=== PATIENT | male | born 1985 | race Two or more races ===

== ENCOUNTER 2019-03-05 20:47 | Emergency (ER) | payer MEDICAID ==
[~2019-03-05 20:47] MED LIST: DIAZ5TAB PO
== END 2019-03-05 20:58 | disposition left against medical advice (07) ==
LOC: ER 20:47
DX: T16.9XXA Foreign body in ear, unspecified ear, initial encounter (principal); Z53.21 Procedure and treatment not carried out due to patient leaving prior to being seen by health care provider; W45.8XXA Other foreign body or object entering through skin, initial encounter; Y93.89 Activity, other specified; Y92.89 Other specified places as the place of occurrence of the external cause; Y99.8 Other external cause status

== ENCOUNTER 2019-04-17 11:01 | Emergency (ER) | payer MEDICAID ==
[~2019-04-17] VITALS: Ht 175.3 cm; Wt 230.0 kg
[2019-04-17 11:10] VITALS: BP 141/82
== END 2019-04-17 11:48 | disposition home or self-care (01) ==
LOC: ER 11:02
DX: T16.1XXA Foreign body in right ear, initial encounter (principal); J45.909 Unspecified asthma, uncomplicated; F32.9 Major depressive disorder, single episode, unspecified; Z79.899 Other long term (current) drug therapy; Z98.890 Other specified postprocedural states; Z56.0 Unemployment, unspecified; X58.XXXA Exposure to other specified factors, initial encounter; Y93.E8 Activity, other personal hygiene; Y92.89 Other specified places as the place of occurrence of the external cause; Y99.8 Other external cause status
CPT/HCPCS: 69200; 99284

== ENCOUNTER 2019-04-21 13:33 | Emergency (ER) | payer MEDICAID ==
[~2019-04-21] VITALS: Ht 175.3 cm; Wt 104.5 kg
[2019-04-21] MEDS ORDERED: TRAM50TA2 PO (13:57)
[2019-04-21] MEDS ORDERED: IBUP-1986 PO (13:57)
[2019-04-21] MEDS ORDERED: ketorolac trometh inj. 60 MG/2 ML VIAL IM ONE (14:20)
[2019-04-21 14:43] VITALS: BP 120/79
== END 2019-04-21 14:54 | disposition home or self-care (01) ==
LOC: ER 13:34
DX: M54.5 Low back pain (principal); J45.909 Unspecified asthma, uncomplicated; F32.9 Major depressive disorder, single episode, unspecified; Z56.0 Unemployment, unspecified; Z79.899 Other long term (current) drug therapy
CPT/HCPCS: 96372; 99284; J1885

== ENCOUNTER 2019-05-19 21:17 | Emergency (ER) | payer MEDICAID ==
[~2019-05-19] VITALS: Ht 175.3 cm; Wt 104.5 kg
[~2019-05-19 21:17] MED LIST changes: +IBUP-1986 PO; +TRAM50TA2 PO
[2019-05-19 21:25] VITALS: BP 138/98
== END 2019-05-19 22:10 | disposition home or self-care (01) ==
LOC: ER 21:18
DX: T16.1XXA Foreign body in right ear, initial encounter (principal); J45.909 Unspecified asthma, uncomplicated; F32.9 Major depressive disorder, single episode, unspecified; F10.99 Alcohol use, unspecified with unspecified alcohol-induced disorder; Z56.0 Unemployment, unspecified; Z98.890 Other specified postprocedural states; Z79.899 Other long term (current) drug therapy; W22.8XXA Striking against or struck by other objects, initial encounter; Y93.89 Activity, other specified; Y92.89 Other specified places as the place of occurrence of the external cause; Y99.8 Other external cause status; Y90.9 Presence of alcohol in blood, level not specified
CPT/HCPCS: 99284

== ENCOUNTER 2019-07-23 15:14 | Emergency (ER) | payer MEDICAID, OTHER ==
[~2019-07-23] VITALS: Ht 175.3 cm; Wt 110.0 kg
[~2019-07-23 15:14] MED LIST changes: -TRAM50TA2 PO
[2019-07-23 15:35] VITALS: BP 129/61
[2019-07-23] MEDS ORDERED: colchicine 0.6mg tablet PO ONE (16:15)
[2019-07-23] MEDS ORDERED: NAPR-56 PO (16:16)
--- NOTE | 2019-07-23 16:40 | NUR ---
RECEVIED 0.6 MG OF COLCHICINE ,BUT DOSE ORDER IS 1.2 MG CALLED PHARMACY THEY SAID THEY WILL BRING IT BACK TO FAST TRACK.
== END 2019-07-23 16:51 | disposition home or self-care (01) ==
LOC: ER 15:14
DX: M10.9 Gout, unspecified (principal); M79.674 Pain in right toe(s); J45.909 Unspecified asthma, uncomplicated; G89.29 Other chronic pain; F32.9 Major depressive disorder, single episode, unspecified; F12.90 Cannabis use, unspecified, uncomplicated; F10.99 Alcohol use, unspecified with unspecified alcohol-induced disorder; Z98.890 Other specified postprocedural states; Z56.0 Unemployment, unspecified; Z79.899 Other long term (current) drug therapy; Y90.9 Presence of alcohol in blood, level not specified
CPT/HCPCS: 99282

== ENCOUNTER 2019-08-04 12:10 | Emergency (ER) | payer MEDICAID, OTHER ==
[~2019-08-04] VITALS: Ht 172.7 cm; Wt 103.0 kg
[2019-08-04 12:42] LABS: CLARITY,URINE CLEAR (Clear); COLOR,URINE YELLOW (Yellow); GLUCOSE, URINE NEGATIVE (Neg); KETONES,URINE NEGATIVE (Neg); LEUKOCYTE ESTERASE ,URINE NEGATIVE (Neg); NITRITES, URINE NEGATIVE (Neg); OCCULT BLOOD,URINE NEGATIVE (Neg); PROTEIN,URINE NEGATIVE (Neg); UROBILINOGEN,URINE 0.2 E.U/dL (0.2-1.0)
[2019-08-04 12:44] LABS: UA COLLECTION TYPE CLN CATCH MIDSTREAM
[2019-08-04 12:49] LABS: BASOPHILS # (AUTO) 0.1 X10'3 (0-0.2); BASOPHILS % (AUTO) 0.6 % (0-1); EOSINOPHILS # (AUTO) 1.2 X10'3 (0-0.9); EOSINOPHILS % (AUTO) 10.8 % (0-6); HEMATOCRIT 45.1 % (42.0-52.0); HEMOGLOBIN 14.9 g/dl (14.0-17.9); LYMPHOCYTES # (AUTO) 2.1 X10'3 (1.1-4.8); LYMPHOCYTES % (AUTO) 18.3 % (21-51); MEAN CORPUSCULAR HEMOGLOBIN 30.6 PG (27.0-31.0); MEAN CORPUSCULAR HGB CONC 33.1 g/dL (33.0-36.5); MEAN CORPUSCULAR VOLUME 92.4 FL (78-98); MEAN PLATELET VOLUME 8.1 FL (7.4-10.4); MONOCYTES # (AUTO) 1.1 X10'3 (0-0.9); MONOCYTES % (AUTO) 9.8 % (2-12); NEUTROPHILS # (AUTO) 6.9 X10'3 (1.8-7.7); NEUTROPHILS % (AUTO) 60.5 % (42-75); PLATELET COUNT 296 X10'3 (140-440); RED BLOOD COUNT 4.88 X10'6 (4.70-6.10); RED CELL DISTRIBUTION WIDTH 13.6 % (11.5-14.5); WHITE BLOOD COUNT 11.4 X10'3 (4.5-11.0)
[2019-08-04 13:07] LABS: ALANINE AMINOTRANSFERASE 26 U/L (12-78); ALBUMIN 3.7 G/DL (3.4-5.0); ALBUMIN/GLOBULIN RATIO 0.9 (1.1-1.5); ALKALINE PHOSPHATASE 118 IU/L (46-116); ANION GAP 8 (8-16); ASPARTATE AMINO TRANSFERASE 15 U/L (10-37); BILIRUBIN,TOTAL 0.6 MG/DL (0.1-1.0); BLOOD UREA NITROGEN 18 MG/DL (7-18); BUN/CREATININE RATIO 15.7 (5.4-32.0); CALCIUM 8.7 MG/DL (8.5-10.1); CHLORIDE 106 MMOL/L (99-107); CREATININE 1.15 MG/DL (0.60-1.10); GLUCOSE 105 MG/DL (70-104); LIPASE 128 U/L (73-393); POTASSIUM 4.1 MMOL/L (3.5-5.1); SODIUM 141 MMOL/L (135-145); TOTAL CARBON DIOXIDE 27.1 MMOL/L (24-32); TOTAL PROTEIN 7.6 G/DL (6.4-8.2); eGFR 74 ML/MIN
[2019-08-04] MEDS ORDERED: HYDROcodone/acetaminophen 10/325mg tab PO ONE (13:20)
[2019-08-04] MEDS ORDERED: ondansetron 4mg rapidly disintigrating tab PO ONE (13:20)
[2019-08-04] MEDS ORDERED: IBUP-1984 PO (13:48)
[2019-08-04] MEDS ORDERED: HYDR-4383 PO (13:58)
[2019-08-04] MEDS ORDERED: ONDA4TAB6 PO (13:59)
[2019-08-04 14:09] VITALS: BP 125/72
== END 2019-08-04 14:16 | disposition home or self-care (01) ==
LOC: ER 12:10
DX: R10.32 Left lower quadrant pain (principal); J45.909 Unspecified asthma, uncomplicated; G89.29 Other chronic pain; M10.9 Gout, unspecified; F12.90 Cannabis use, unspecified, uncomplicated
CPT/HCPCS: 36415; 74176; 80053; 81003; 83690; 85025; 99284

== ENCOUNTER → 2020-03-30 | Emergency (ER) | payer MEDICAID, OTHER ==
[~2020-03-30] VITALS: Ht 175.3 cm; Wt 120.5 kg
[~2020-03-30] MED LIST changes: +HYDR-4383 PO; +ONDA4TAB6 PO; +ketorolac tromethamine 15mg/ml inj. IM ONE
[2020-03-31 00:17] VITALS: BP 114/69
== END | disposition home or self-care (01) ==
LOC: ER 22:53
DX: M54.5 Low back pain (principal); G89.29 Other chronic pain; R20.0 Anesthesia of skin; J45.909 Unspecified asthma, uncomplicated; F32.9 Major depressive disorder, single episode, unspecified; F12.90 Cannabis use, unspecified, uncomplicated; F17.200 Nicotine dependence, unspecified, uncomplicated; Z98.890 Other specified postprocedural states; Z79.899 Other long term (current) drug therapy; X50.9XXA Other and unspecified overexertion or strenuous movements or postures, initial encounter; Y93.89 Activity, other specified; Y92.89 Other specified places as the place of occurrence of the external cause; Y99.8 Other external cause status
CPT/HCPCS: 96372; 99283; J1885

== ENCOUNTER 2020-06-18 12:34 | Emergency (ER) | payer OTHER ==
[~2020-06-18] VITALS: Ht 175.3 cm; Wt 117.6 kg
[~2020-06-18 12:34] MED LIST changes: -ketorolac tromethamine 15mg/ml inj. IM ONE
[2020-06-18 12:42] VITALS: BP 130/87
== END 2020-06-18 14:42 | disposition home or self-care (01) ==
LOC: ER 12:35
DX: S60.512A Abrasion of left hand, initial encounter (principal); S60.511A Abrasion of right hand, initial encounter; S60.812A Abrasion of left wrist, initial encounter; J45.909 Unspecified asthma, uncomplicated; G89.29 Other chronic pain; F32.9 Major depressive disorder, single episode, unspecified; F12.90 Cannabis use, unspecified, uncomplicated; M10.9 Gout, unspecified; Z98.890 Other specified postprocedural states; Z79.899 Other long term (current) drug therapy; W05.1XXA Fall from non-moving nonmotorized scooter, initial encounter; Y93.89 Activity, other specified; Y92.488 Other paved roadways as the place of occurrence of the external cause; Y99.8 Other external cause status
CPT/HCPCS: 29125; 73110; 99284

== ENCOUNTER 2021-04-15 08:40 | Emergency (ER) | payer SELFPAY ==
[~2021-04-15] VITALS: Ht 175.3 cm; Wt 120.1 kg
[2021-04-15 09:13] LABS: CLARITY,URINE CLEAR (Clear); COLOR,URINE YELLOW (Yellow); GLUCOSE, URINE NEGATIVE (Neg); KETONES,URINE NEGATIVE (Neg); LEUKOCYTE ESTERASE ,URINE NEGATIVE (Neg); NITRITES, URINE NEGATIVE (Neg); OCCULT BLOOD,URINE NEGATIVE (Neg); PH,URINE 5.5 (4.8-8.0); PROTEIN,URINE TRACE mg/dl (Neg)
[2021-04-15 09:18] LABS: UA COLLECTION TYPE CLN CATCH MIDSTREAM
[2021-04-15 09:19] LABS: MUCUS STRANDS MODERATE /LPF (Neg); SQUAMOUS EPITHELIAL CELL,UR FEW /LPF (FEW)
[2021-04-15 09:20] LABS: BACTERIA,URINE 1+ /HPF (Neg); RBC,URINE 0-2 /HPF (0-2); WBC,URINE 0-4 /HPF (0-4)
[2021-04-15] MEDS ORDERED: ondansetron/PF 4mg/2ml inj IV ONE (11:25)
[2021-04-15] MEDS ORDERED: morphine 4 MG/ML inj SYRINge IV PRN (11:25)
[2021-04-15] MEDS ORDERED: ketorolac tromethamine 15mg/ml inj. IV ONE (11:25)
[2021-04-15] MEDS ORDERED: normal saline 1000ML IV soln IVB ONE (11:25)
[2021-04-15 12:02] LABS: BASOPHILS % (AUTO) 0.3 % (0-1); EOSINOPHILS # (AUTO) 0.4 X10'3 (0-0.9); EOSINOPHILS % (AUTO) 4.8 % (0-6); HEMATOCRIT 43.5 % (42.0-52.0); HEMOGLOBIN 14.5 g/dl (14.0-17.9); LYMPHOCYTES # (AUTO) 1.8 X10'3 (1.1-4.8); LYMPHOCYTES % (AUTO) 23.1 % (21-51); MEAN CORPUSCULAR HEMOGLOBIN 31.5 PG (27.0-31.0); MEAN CORPUSCULAR HGB CONC 33.3 g/dL (33.0-36.5); MEAN CORPUSCULAR VOLUME 94.5 FL (78-98); MEAN PLATELET VOLUME 8.9 FL (7.4-10.4); MONOCYTES # (AUTO) 0.7 X10'3 (0-0.9); MONOCYTES % (AUTO) 9.1 % (2-12); NEUTROPHILS # (AUTO) 4.8 X10'3 (1.8-7.7); NEUTROPHILS % (AUTO) 62.7 % (42-75); PLATELET COUNT 229 X10'3 (140-440); RED CELL DISTRIBUTION WIDTH 13.3 % (11.5-14.5); WHITE BLOOD COUNT 7.7 X10'3 (4.5-11.0)
[2021-04-15 12:23] LABS: ALANINE AMINOTRANSFERASE 69 U/L (12-78); ALBUMIN 3.6 G/DL (3.4-5.0); ALKALINE PHOSPHATASE 115 IU/L (46-116); ANION GAP 10 (8-16); ASPARTATE AMINO TRANSFERASE 23 U/L (10-37); BILIRUBIN,TOTAL 1.2 MG/DL (0.1-1.0); BLOOD UREA NITROGEN 12 MG/DL (7-18); BUN/CREATININE RATIO 14.3 (5.4-32.0); CALCIUM 8.1 MG/DL (8.5-10.1); CHLORIDE 106 MMOL/L (99-107); CREATININE 0.84 MG/DL (0.60-1.10); GLUCOSE 117 MG/DL (70-104); LIPASE 62 U/L (73-393); POTASSIUM 4.1 MMOL/L (3.5-5.1); SODIUM 139 MMOL/L (135-145); TOTAL CARBON DIOXIDE 23.5 MMOL/L (24-32); TOTAL PROTEIN 7.2 G/DL (6.4-8.2); eGFR > 90 ML/MIN
[2021-04-15] MEDS ORDERED: HYDROcodone/acetaminophen 10/325mg tab PO ONE (12:50)
[2021-04-15] MEDS ORDERED: HYDR-3972 PO (12:54)
[2021-04-15] MEDS ORDERED: IBUP-1986 PO (12:54)
[2021-04-15 14:15] VITALS: BP 112/61
== END 2021-04-15 14:13 | disposition home or self-care (01) ==
LOC: ER 08:41
DX: R10.84 Generalized abdominal pain (principal); J45.909 Unspecified asthma, uncomplicated; G89.29 Other chronic pain; M10.9 Gout, unspecified; F32.9 Major depressive disorder, single episode, unspecified; F12.90 Cannabis use, unspecified, uncomplicated; Z98.890 Other specified postprocedural states; Z72.89 Other problems related to lifestyle; Z79.899 Other long term (current) drug therapy
CPT/HCPCS: 36415; 74176; 80053; 81001; 83690; 85025; 96361; 96374; 96375; 99284; J1885; J2270; J2405; J7030

== ENCOUNTER 2023-05-29 11:13 | Emergency (ER) | payer OTHER ==
[~2023-05-29] VITALS: Ht 175.3 cm; Wt 75.0 kg
[2023-05-29 11:15] VITALS: BP 117/84; PULSE 94; RESP 16; TEMP 97.5; O2SAT 98
[2023-05-29] MEDS ORDERED: IBUP-1984 PO (15:10)
== END 2023-05-29 15:31 | disposition home or self-care (01) ==
LOC: ER 11:14
DX: S90.31XA Contusion of right foot, initial encounter (principal); X58.XXXA Exposure to other specified factors, initial encounter; Y93.89 Activity, other specified; Y92.89 Other specified places as the place of occurrence of the external cause; Y99.8 Other external cause status
CPT/HCPCS: 73630; 99283

== ENCOUNTER 2023-06-21 17:20 | Emergency (ER) | payer OTHER ==
[~2023-06-21] VITALS: Ht 175.3 cm; Wt 106.0 kg
[2023-06-21 17:34] VITALS: BP 133/86; PULSE 96; RESP 16; TEMP 98.6; O2SAT 98
[2023-06-21] MEDS ORDERED: ketorolac trometh. 30mg/ml inj. IV ONE (20:55)
[2023-06-21] MEDS ORDERED: NAPR-56 PO (20:58)
== END 2023-06-21 21:17 | disposition home or self-care (01) ==
LOC: ER 17:21
DX: S93.601A Unspecified sprain of right foot, initial encounter (principal); J45.909 Unspecified asthma, uncomplicated; G89.29 Other chronic pain; M81.0 Age-related osteoporosis without current pathological fracture; F12.90 Cannabis use, unspecified, uncomplicated; Z72.89 Other problems related to lifestyle; Z79.899 Other long term (current) drug therapy; X58.XXXA Exposure to other specified factors, initial encounter; Y93.89 Activity, other specified; Y92.89 Other specified places as the place of occurrence of the external cause; Y99.8 Other external cause status
CPT/HCPCS: 96374; 99283; J1885

== ENCOUNTER 2025-05-16 10:17 | Emergency (ER) | payer BC, OTHER ==
[~2025-05-16] VITALS: Ht 172.7 cm; Wt 97.5 kg
[2025-05-16 10:30] VITALS: BP 118/75; PULSE 82; RESP 16; TEMP 98.7; O2SAT 98
--- NOTE | 2025-05-16 10:46 | Physician Documentation ---
HPI ~ General Chief Complaint: Medication Refill Stated Complaint: MED REQUEST Time Seen by MD: 10:49 Primary Medical Doctor: NONE History of Present Illness HPI Comments This is a 40-year-old male who was on Suboxone therapy for opioid dependence, patient reports that he ran out of his medication early in his requesting a refill until May 21 when he sees his primary care provider for his typical refill. Medication Reconciliation Allergies: Coded Allergies: No Known Allergies (Unverified , 05/16/25) Scheduled Buprenorphine Hcl/Naloxone Hcl (Suboxone 8 Mg-2 Mg Sl Film), 1 STRIP SL QID Diazepam (Valium), 1 TABLET PO BID Hydrocodone/Acetaminophen ([place] 5-325 Tablet), 1 TAB PO TID PRN Ibuprofen (Ibuprofen), 1 TAB PO Q8H Ibuprofen (Ibuprofen), 1 TAB PO Q8H Ondansetron Hcl (Zofran), 1 TAB PO Q6H Discontinued Medications Buprenorphine Hcl/Naloxone Hcl (Suboxone 8 Mg-2 Mg Sl Film), 1 STRIP SL QID Discontinued Reason: Prescription changed Past Medical History Past Medical History: Asthma, Chronic Back Pain, Gout, Depression Past Surgical History: other Other Past Family History: UNKNOWN Alcohol Use: Occasionally Drug Use: marijuana Lives with: Mother, Father Occupation: employed Review of Systems ROS As stated above in the HPI, otherwise all systems are reviewed and negative. Physical Exam Physical Exam Vital Signs: Temperature: 98.7, Source: Oral, Heart Rate: 82, Respiratory Rate: 16, BP: 118/75, Pulse Oximetry: 98, Weight: 97.500 Oxygen Flow Rate: 0 Physical Exam VITALS: Reviewed and as above. GENERAL: Alert, nontoxic appearing, no apparent distress. RESPIRATORY: No increased work of breathing, no respiratory distress, speaking in full clear sentences Progress Results/Orders Results/Orders Vital Signs 05/16/25 10:30 Temp 98.7 Pulse 82 Resp 16 B/P (MAP) 118/75 Pulse Ox 98 O2 Flow Rate 0 Medical Decision Making Findings This is a 40-year-old male presented requesting refill of Suboxone due to running out prior to next its primary care visit for refill of Suboxone, patient reported taking additional doses and has subsequently run out. Review of cures database and external medication history indicate patient has run out early. A short prescription we will be provided to prevent patient from being at risk of opioid withdrawal or substance use relapse. Patient is otherwise well-appearing and physical exam benign, additionally reassuring patient reported no acute symptoms or concerns. Patient has been advised that he should follow up with his primary care provider early if he requires extra doses of Suboxone. Follow up instructions, return to care precautions, and home care instructions discussed with the patient who verbalized understanding. Differential Dx:Considerations: Include: Adverse circumstances, Economic, Psychosocial, Medical services unavail., Medication refill, Medication non- compliance Departure Time of Disposition: 11:49 Disposition: 01 HOME / SELF CARE / HOMELESS Impression: Primary Impression: General medical exam Additional Impression: Medication refill Condition: Improved Discharge Instructions: Medicine Refill at the Emergency Department Additional Instructions: Please follow up as scheduled with your primary care provider for refill of your Suboxone prescription a long-term basis. Please use the medication as prescribed. Please follow up with your primary care provider in the next few days. Please return to the emergency department for any new or worsening concerning symptoms. Referrals: NO PRIMARY CARE PROVIDER (PCP) Prescriptions Buprenorphine Hcl/Naloxone Hcl (Suboxone 8 Mg-2 Mg Sl Film) 8 Mg-2 Mg Film 1 STRIP SL QID for 6 Days, #24 STRIP Prov: FRANCHESKA MOSHER 05/16/25 Education Educated: Patient Educated regarding: diagnosis, treatment, prognosis, need for follow up Signature Scribe Signature: No scribe Attestation: The note accurately reflects work and decisions made by me.FERDINAND Norris 05/16/25 21:07 FRANCHESKA MOSHER May 16, 2025 10:46
[2025-05-16] MEDS ORDERED: BUPR1FIL3 SL (11:48)
== END 2025-05-16 12:18 | disposition home or self-care (01) ==
LOC: ER 10:17
DX: Z00.00 Encounter for general adult medical examination without abnormal findings (principal); F11.20 Opioid dependence, uncomplicated; Z76.0 Encounter for issue of repeat prescription; J45.909 Unspecified asthma, uncomplicated; M10.9 Gout, unspecified; F12.90 Cannabis use, unspecified, uncomplicated
CPT/HCPCS: 99281